=== PATIENT | male | born 1965 | race Caucasian/White ===

== ENCOUNTER 2019-05-22 21:14 | Inpatient (IN) | payer MEDICAID ==
[~2019-05-22] VITALS: Ht 180.3 cm; Wt 75.0 kg
[2019-05-22] MEDS ORDERED: ketorolac trometh. 30mg/ml inj. IV ONE (21:50)
[2019-05-22] MEDS ORDERED: fentaNYL/PF 50MCG/1 ML 2ML syringe IV ONE (21:50)
[2019-05-22] MEDS ORDERED: iohexol 300mg/ml 100ml inj. ONE (22:19)
[2019-05-22 22:36] LABS: BASOPHILS % (AUTO) 0.3 % (0-1); EOSINOPHILS # (AUTO) 0.1 X10'3 (0-0.9); EOSINOPHILS % (AUTO) 1.9 % (0-6); HEMOGLOBIN 14.6 g/dl (14.0-17.9); LYMPHOCYTES % (AUTO) 15.2 % (21-51); MEAN CORPUSCULAR HGB CONC 33.2 g/dL (33.0-36.5); MEAN CORPUSCULAR VOLUME 96.3 FL (78-98); MONOCYTES # (AUTO) 0.5 X10'3 (0-0.9); MONOCYTES % (AUTO) 7.9 % (2-12); NEUTROPHILS % (AUTO) 74.7 % (42-75); PLATELET COUNT 279 X10'3 (140-440); RED BLOOD COUNT 4.57 X10'6 (4.70-6.10); RED CELL DISTRIBUTION WIDTH 13.6 % (11.5-14.5); WHITE BLOOD COUNT 6.7 X10'3 (4.5-11.0)
[2019-05-22 22:42] LABS: ALANINE AMINOTRANSFERASE 32 U/L (12-78); ALBUMIN 3.4 G/DL (3.4-5.0); ALBUMIN/GLOBULIN RATIO 0.9 (1.1-1.5); ANION GAP 7 (8-16); ASPARTATE AMINO TRANSFERASE 24 U/L (10-37); BILIRUBIN,TOTAL 0.4 MG/DL (0.1-1.0); BLOOD UREA NITROGEN 18 MG/DL (7-18); CALCIUM 9.2 MG/DL (8.5-10.1); CHLORIDE 103 MMOL/L (99-107); CREATININE 0.82 MG/DL (0.60-1.10); GLUCOSE 119 MG/DL (70-104); SODIUM 139 MMOL/L (135-145); eGFR > 90 ML/MIN
[2019-05-22 22:45] LABS: ALKALINE PHOSPHATASE 77 IU/L (46-116)
[2019-05-22] MEDS ORDERED: CefTRIAXone/D5W-Rocephin 1gm 50 ML IV ONE (23:25)
[2019-05-22] MEDS ORDERED: morphine 4 MG/ML inj SYRINge IV ONE (23:25)
[2019-05-22] MEDS ORDERED: NO HOME MEDS (23:34)
[2019-05-23 00:01] LABS: CLARITY,URINE CLEAR (Clear); COLOR,URINE YELLOW (Yellow); GLUCOSE, URINE NEGATIVE (Neg); KETONES,URINE TRACE mg/dl (Neg); LEUKOCYTE ESTERASE ,URINE NEGATIVE (Neg); NITRITES, URINE NEGATIVE (Neg); OCCULT BLOOD,URINE TRACE-INTACT (Neg); PROTEIN,URINE NEGATIVE (Neg); UROBILINOGEN,URINE 0.2 E.U/dL (0.2-1.0)
[2019-05-23 00:02] LABS: UA COLLECTION TYPE CLN CATCH MIDSTREAM
[2019-05-23 00:10] LABS: BACTERIA,URINE NONE SEEN /HPF (Neg); MUCUS STRANDS NONE SEEN /LPF (Neg); RBC,URINE 0-2 /HPF (0-2); SQUAMOUS EPITHELIAL CELL,UR NONE SEEN /LPF (FEW); WBC,URINE NONE SEEN /HPF (0-4)
[2019-05-23 00:11] LABS: URINE AMPHETAMINE SCREEN POSITIVE (Neg); URINE BARBITUATE SCREEN NEGATIVE (Neg); URINE BENZODIAZEPINES SCREEN NEGATIVE (Neg); URINE CANNABINOID SCREEN POSITIVE (Neg); URINE COCAINE SCREEN NEGATIVE (Neg); URINE METHADONE SCREEN NEGATIVE (Neg); URINE OPIATE SCREEN NEGATIVE (Neg); URINE PHENCYCLIDINE SCREEN NEGATIVE (Neg)
--- NOTE | 2019-05-23 00:30 | NUR ---
Pt asked if NG tube could be placed later, pt denied pain and nausea. I told pt we could wait a little while to place the tube but to notify staff if he became uncomfortable.
[2019-05-23] MEDS ORDERED: ondansetron/PF 4mg/2ml inj IV STA (01:41)
--- NOTE | 2019-05-23 01:42 | NUR ---
pt vomited all over the floor. He is in the BR right now cleaning up.
--- NOTE | 2019-05-23 01:45 | NUR ---
pt and Dr Salinas state that the hernia reduced.
[2019-05-23] MEDS ORDERED: ondansetron/PF 4mg/2ml inj IV PRN (02:35)
[2019-05-23] MEDS ORDERED: normal saline 1000ml 1,000 ML IV SCH (02:35)
--- NOTE | 2019-05-23 03:00 | NUR ---
Per Dr. Salinas, NG tube not needed at this time
--- NOTE | 2019-05-23 04:52 | NUR ---
I called to get report from MORAIMA Dinero at 0320. Received report. Patient was transported to unit at 0330, patient tech transported via [facility]. Patient had belongings with him and walked from the gurney to the bed.
--- NOTE | 2019-05-23 06:30 | NUR ---
Patient in room [facility]. I have received report from Logan VALERA and had the opportunity to ask questions and assume patient care.
--- NOTE | 2019-05-23 06:35 | NUR ---
Problems reprioritized. Patient report given, questions answered & plan of care reviewed with MORAIMA Mantilla.
[2019-05-23 07:00] VITALS: BP 111/77
--- NOTE | 2019-05-23 08:45 | NUR ---
Patient discharged with all belongings. Pt understands to followup with Dr. Stahl. Pt walked to front lobby with PCT.
[2019-06-02] MEDS ORDERED: ALBU6.7H9 INH (10:01)
== END 2019-05-23 08:49 | disposition home or self-care (01) | DRG 254 ==
LOC: ER 21:15 → SUR 3N 05-23 03:29
PROVIDERS: ADMIT Internal Medicine; ATTEND Surgery
PROC: BW211ZZ Computerized Tomography (CT Scan) of Abdomen and Pelvis using Low Osmolar Contrast (ICD-10-PCS; principal; 2019-05-22)
DX: K40.30 Unilateral inguinal hernia, with obstruction, without gangrene, not specified as recurrent (principal); F12.90 Cannabis use, unspecified, uncomplicated; F17.200 Nicotine dependence, unspecified, uncomplicated; Z90.49 Acquired absence of other specified parts of digestive tract; Z79.899 Other long term (current) drug therapy
CPT/HCPCS: 36415; 74177; 80053; 80305; 81001; 81003; 83605; 85025; 87081; 96365; 96375; 99285; G0378; J0696; J1885; J2270; J2405; J3010; J7030; Q9967

== ENCOUNTER 2019-06-07 09:03 | Day surgery (SDC) | payer MEDICAID ==
[~2019-06-07] VITALS: Ht 180.3 cm; Wt 66.2 kg
[2019-06-07] VITALS (10 sets, daily range): BP systolic 106–136; BP diastolic 65–98
[~2019-06-07 09:03] MED LIST: ALBU6.7H9 INH; albuterol 2.5 MG/3 ML nebule NEB ONE; cefazolin/dext.iso 2gm/50ml 50 ML IV ONE; famotidine 20mg tablet PO ONE; ringers solution, lacted 1,000 ML IV SCH
[2019-06-07 10:13] LABS: BASOPHILS % (AUTO) 0.7 % (0-1); EOSINOPHILS # (AUTO) 0.4 X10'3 (0-0.9); HEMATOCRIT 42.7 % (42.0-52.0); LYMPHOCYTES # (AUTO) 1.3 X10'3 (1.1-4.8); LYMPHOCYTES % (AUTO) 24.8 % (21-51); MEAN CORPUSCULAR HGB CONC 32.9 g/dL (33.0-36.5); MEAN CORPUSCULAR VOLUME 97.3 FL (78-98); MEAN PLATELET VOLUME 6.9 FL (7.4-10.4); MONOCYTES # (AUTO) 0.4 X10'3 (0-0.9); MONOCYTES % (AUTO) 6.8 % (2-12); NEUTROPHILS # (AUTO) 3.3 X10'3 (1.8-7.7); NEUTROPHILS % (AUTO) 60.7 % (42-75); PLATELET COUNT 312 X10'3 (140-440); RED BLOOD COUNT 4.39 X10'6 (4.70-6.10); WHITE BLOOD COUNT 5.4 X10'3 (4.5-11.0)
[2019-06-07] MEDS ORDERED: BUPIVAcaine/PF 2.5 mg/ml (0.25%) 30ml vial ONE (10:20)
[2019-06-07] MEDS ORDERED: LIDOcaine 1% 30ml preserv. free vial ONE (10:20)
[2019-06-07] MEDS ORDERED: ringers solution, lacted 1,000 ML IV SCH (10:21)
[2019-06-07 10:25] LABS: ALANINE AMINOTRANSFERASE 25 U/L (12-78); ALBUMIN 3.5 G/DL (3.4-5.0); ALKALINE PHOSPHATASE 70 IU/L (46-116); ANION GAP 10 (8-16); ASPARTATE AMINO TRANSFERASE 22 U/L (10-37); BILIRUBIN,TOTAL 0.5 MG/DL (0.1-1.0); BLOOD UREA NITROGEN 17 MG/DL (7-18); BUN/CREATININE RATIO 25.4 (5.4-32.0); CALCIUM 8.7 MG/DL (8.5-10.1); CHLORIDE 105 MMOL/L (99-107); CREATININE 0.67 MG/DL (0.60-1.10); GLUCOSE 100 MG/DL (70-104); POTASSIUM 3.8 MMOL/L (3.5-5.1); SODIUM 141 MMOL/L (135-145); TOTAL CARBON DIOXIDE 26.3 MMOL/L (24-32); TOTAL PROTEIN 6.9 G/DL (6.4-8.2); eGFR > 90 ML/MIN
[2019-06-07] MEDS ORDERED: ondansetron/PF 4mg/2ml inj IV PRN (10:25)
[2019-06-07] MEDS ORDERED: morphine 4 MG/ML inj SYRINge IV PRN ×2 (10:25)
[2019-06-07] MEDS ORDERED: fentaNYL/PF 50MCG/1 ML 2ML syringe IV PRN ×2 (10:25)
[2019-06-07] MEDS ORDERED: hydrALAZINE 20mg/ml inj. IV PRN (10:25)
[2019-06-07] MEDS ORDERED: labetalol 20mg/4ml (5mg/ml) syringe IV PRN (10:25)
[2019-06-07] MEDS ORDERED: rocuronium 10mg/ml inj IV ONE (10:35)
[2019-06-07] MEDS ORDERED: ondansetron/PF 4mg/2ml inj ONE (10:35)
[2019-06-07] MEDS ORDERED: LIDOcaine 1%/PF 5ML 10 MG/ML VIAL ONE (10:35)
[2019-06-07] MEDS ORDERED: propofol inj 20 ML IV ONE (10:35)
[2019-06-07] MEDS ORDERED: fentaNYL/PF 50MCG/1 ML 2ML syringe ONE (10:35)
[2019-06-07] MEDS ORDERED: MIDAZolam 5mg/5ml vial ONE (10:35)
[2019-06-07] MEDS ORDERED: neostigmine methylsulfate 1 MG/ML 10ml vial ONE (10:41)
[2019-06-07] MEDS ORDERED: dexamethasone sod phosphate 10mg/ml inj ONE (10:41)
[2019-06-07] MEDS ORDERED: glycopyrrolate 0.2mg/ml inj ONE (10:41)
[2019-06-07] MEDS ORDERED: sevoflurane 250ml liquid IH ONE (10:41)
--- NOTE | 2019-06-07 12:10 | NUR ---
Received from OR via BED , accompanied by Anesthesiologist DR NORMAN and report given by Anesthesiolgist. PATIENT WAKING UP, DENIES PAIN, V/S WNL, NEUROVASCULAR CHECKS INTACT, 20G PIV LUE, SCD ON, BANDAIDS TO LAP SIGHTS OF ABDOMEN CDI.
[2019-06-07] MEDS ORDERED: HYDROcodone/acetaminophen 5mg/325mg tablet PO ONE (12:50)
--- NOTE | 2019-06-07 13:30 | NUR ---
PATIENT A&OX4, DENIES PAIN, V/S WNL, NEUROVASCULAR CHECKS INTACT, 20G PIV LUE D/C, SCD OFF, BANDAIDS TO LAP SIGHTS OF ABDOMEN CDI. PATIENT WAS ABLE TO AMBULATE WITH STANDBY ASSIST AND VOIDED 150CC.. I HAVE REVIEWED D/C INSTRUCTIONS WITH PATIENT AND HIS FRIEND AND THEY HAVE VERBALIZED UNDERSTANDING.PATIENT WAS D/C HOME WITH ALL BELONGINGS AND FRIEND GAVE TRANSPORT HOME.
== END 2019-06-07 13:30 | disposition home or self-care (01) ==
LOC: PAS 09:03
PROVIDERS: ATTEND Surgery
DX: K40.30 Unilateral inguinal hernia, with obstruction, without gangrene, not specified as recurrent (principal); K66.0 Peritoneal adhesions (postprocedural) (postinfection); J45.909 Unspecified asthma, uncomplicated; F19.90 Other psychoactive substance use, unspecified, uncomplicated; F17.210 Nicotine dependence, cigarettes, uncomplicated; Z98.890 Other specified postprocedural states; Z79.899 Other long term (current) drug therapy
CPT/HCPCS: 36415; 49650; 80053; 85025; 93005; C1781; J1100; J2001; J2250; J2405; J2704; J2710; J3010; J3490; S2900; A4215; A4618; J7120